=== PATIENT | male | born 1945 | race Caucasian/White ===

== ENCOUNTER 2016-09-27 03:44 | Emergency (ER) | payer OTHER ==
[2016-09-27] MEDS ORDERED: Sodium Chloride 0.9% 1,000 ML PRIMARY IV ONE (04:24)
[2016-09-27] MEDS ORDERED: NORMAL SALINE 10 ML SYRINGE FLUSH IVP PRN (04:24)
[2016-09-27] MEDS ORDERED: ONDANSETRON 4 MG/2 ML VIAL IVP ONE (04:24)
[2016-09-27 05:13] LABS: ABG BASE EXCESS -10 MMOL/L (-2-2); ABG OXYGEN SATURATION 94 % (90-100); ABG PCO2 23 MMHG (34-38); ABG PO2 69 MMHG (65-75); ALLEN TEST Y; COLLECTION SITE R Rad X2
[2016-09-27 05:25] LABS: BLOOD UREA NITROGEN 25 mg/dL (7-22); BUN/CREATININE RATIO 22.72 (6-20); CALCIUM 9.3 mg/dL (8.7-10.7); EST GLOMERULAR FILTRATION > 60 (>60 ml/min/1.73m(2)); SERUM ALBUMIN 3.7 g/dL (3.5-4.8)
[2016-09-27 05:32] LABS: BASOPHILS # (AUTO) 0.01 10*3/UL; BASOPHILS % (AUTO) 0.1 % (0-1); EOSINOPHILS # (AUTO) 0.04 10*3/UL; EOSINOPHILS % (AUTO) 0.5 % (0-8); HEMATOCRIT 37.5 % (42.0-52.0); HEMOGLOBIN 13.1 g/dL (14.0-18.0); LYMPHOCYTES # (AUTO) 0.44 10*3/uL; MEAN CORPUSCULAR HEMOGLOBIN 30.3 PG (27-31); MEAN CORPUSCULAR HGB CONC 34.9 g/dL (33-37); MEAN CORPUSCULAR VOLUME 86.6 FL (80-90); MEAN PLATELET VOLUME 10.1 FL (7.4-12.2); MONOCYTES # (AUTO) 0.43 10*3/UL (0.3-0.8); MONOCYTES % (AUTO) 5 % (5-15); NEUTROPHILS # (AUTO) 7.62 10*3/UL; NEUTROPHILS % (AUTO) 89.1 % (50-80); PLATELET MORPHOLOGY COMMENT NORMAL MORPHOLOGY (NORM); RBC MORPHOLOGY COMMENT NORMAL MORPHOLOGY (NORM); RED BLOOD COUNT 4.33 10^6/uL (4.70-6.10); WBC MORPHOLOGY COMMENT NORMAL MORPHOLOGY (NORM)
[2016-09-27 05:48] LABS: CLARITY,URINE CLOUDY (CLEAR); COLOR,URINE YELLOW; URINE SAMPLE TYPE CLEAN CATCH URINE
[2016-09-27 05:49] LABS: BILIRUBIN,URINE NEGATIVE (NEG); GLUCOSE, URINE (UA) 500 mg/dL (NEG); NITRATE,URINE NEGATIVE (NEG); OCCULT BLOOD,URINE SMALL (NEG); PROTEIN,URINE NEGATIVE (NEG)
[2016-09-27 05:50] LABS: UROBILINOGEN,URINE 0.2 EU/dL (0.2)
[2016-09-27 05:51] LABS: BACTERIA,URINE RARE; SQUAMOUS EPITHELIAL CELL,UR RARE; URINE CRYSTALS MODERATE
--- NOTE | 2016-09-27 06:19 | PDOC ---
General Adult HPI - General Chief Complaint: General Medical Stated Complaint: "I THINK I'M GOING SEPTIC"/ [facility] Date Seen by Provider: 09/27/16 Time Seen by Provider: 04:10 Source: POSITIVE: Patient, Spouse Exam Limitations: POSITIVE: No limitations Nurse's Notes Reviewed & Considered: Yes - History of Present Illness Initial Comment: The patient is a 70-year-old male. Patient has a urostomy secondary to bladder cancer. He states he awoke around 0030 this morning with "shivering and I had the sweats". Patient is concerned because he states he has had sepsis in the past, apparently urosepsis. He states that his urologist has advised him to take a Levaquin tablet whenever he develops his symptoms and to seek medical advice. Patient gets his medical care at the [facility] in [place]. He states he has a history of bladder and prostate cancer. He has had no known fevers. He took a Levaquin tablet, as he was reportedly instructed to do by his primary physician and/or urologist. Patient states he has had a urostomy for the past 3 years. He states he has felt somewhat nauseated. No head chest or abdominal pain. No rashes or skin changes. No neurologic symptoms. 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) Severity: Moderate Quality: REPORTS: Other (Patient denies any pain anywhere) Context: REPORTS: Sleep Modifying Factors: improves with: Nothing Similar Symptoms Previously: Yes (as above) Recent Care Received: REPORTS: Denies Any Prior Injuries Related to Current Complaint?: No - Patient Home Medications Home Medications: Home Medications Aspirin 81 mg PO DAILY 09/27/16 Budesonide/Formoterol Fumarate [Symbicort 80-4.5 Mcg Inhaler] 2 puff INH DAILY 09/27/16 Insulin Aspart [Novolog] 1.6 unit SUBCUT AC PRN 09/27/16 Omeprazole 40 mg PO DAILY 09/27/16 Simvastatin 40 mg PO DAILY 09/27/16 Valsartan 40 mg PO DAILY 09/27/16 - Patient Allergies Allergies/Adverse Reactions: Allergies Allergy/AdvReac Type Severity Reaction Status Date / Time No Known Allergies Allergy Verified 09/27/16 04:02 Past Medical History - heen HEENT History: Denies History Cardiovascular History: Hypertension, Hyperlipidemia Respiratory History: COPD Gastrointestinal History: Denies History Genitourinary History: Other (please comment) (Bladder and prostate cancer; urostomy) Endocrine History: Type 2 Diabetes (insulin) Musculoskeletal History: Other (please comment) (Neuropathy due to diabetes) Prosthesis or Implant: No Neurological History: Denies History Blood Disorders: Denies History Psychiatric History: Denies History Male Reproductive History: Denies History Cancer History: Other (please comment) (Bladder and prostate) In Past Year Been Physically Harmed or Verbally Threatened: No History of MDRO: No History of Other Communicable Diseases: No History of Exposure to Communicable Disease: No Tobacco Use: Former Smoker Do you dip or chew tobacco: No Alcohol Use: Rarely Substance Use Type: None Previous Hospitalizations: Yes (urostomy) Previous Surgical History: Yes Significant Family History: No pertinent family hx Past Medical History Reviewed: Reviewed - No Changes ROS - Limitations ROS Limitations: No Limitations Constitution: REPORTS: Chills Cardiovascular: REPORTS: Denies Cardiac Symptoms Respiratory: REPORTS: Denies Resp Symptoms Neurological: REPORTS: Denies Neuro Symptoms Gastrointestinal: REPORTS: Denies GI Symptoms Endocrine: REPORTS: Denies Symptoms Musculoskeletal: REPORTS: Denies MS Symptoms Genitourinary: REPORTS: Denies Symptoms, Other (Patient has a urostomy) Eyes: REPORTS: Denies Symptoms ENT: REPORTS: Denies Symptoms Skin: REPORTS: Denies Skin Symptoms Lympathic: REPORTS: Denies Lympathic Symptoms Immunologic: POSITIVE: Denies Symptoms Psychiatric: POSITIVE: Denies Psych Symptoms General Adult Exam - General Appearance General Appearance: POSITIVE: Alert, Cooperative, No Acute Distress, No Evidence of Trauma - HEENT HEENT: POSITIVE: Head Inspection Nml, Eyes Inspection Nml, Ears Inspection Nml, Nose Inspection Nml, Oral/Dental Inspect. Nml, Pharynx Inspect. Nml, PERRL, EOMI - Pupils Pupil Size: 3 mm: Bilateral (PERRLA) - Neck Neck: POSITIVE: Normal Inspection, Thyroid Normal - Respiratory Respiratory: POSITIVE: No Respiratory Distress, Breath Sounds Normal, Chest Non- Tender - Cardiovascular Cardiovascular: POSITIVE: Regular Rate & Rhythm, No Murmur, No Gallop, PMI Normal Peripheral Pulses: Radial (R): 2+, Radial (L): 2+ - Abdomen Abdomen: Soft: (All Quadrants), Normal Bowel Sounds: (All Quadrants), Denies Tenderness: (All Quadrants), No Splenomegaly: (All Quadrants), No Hepatomegaly: (All Quadrants), No Guarding: (All Quadrants), No Rebound: (All Quadrants), No Palpable Pulse: (All Quadrants), No Palpabale Mass: (All Quadrants), No Distention: (All Quadrants), No Rigidity: (All Quadrants) Additional Abdominal Details: Abdominal examination shows bowel sounds to be active. Abdomen is nontender and without masses, organomegaly or rebound. Functioning urostomy right lower abdomen - Back Back: POSITIVE: Normal Inspection. NEGATIVE: CVA Tenderness - Skin Skin: POSITIVE: Normal Color, Warm, Dry, No Rash - Extremities Extremity: Non-Tender: (All Extremities), Normal ROM: (All Extremities), Normal Inspection: (All Extremities) - Neurological / Psychological Neurological: POSITIVE: Oriented X3, special events planner Normal As Tested, Motor Normal, Sensation Normal, 5, 6 General Adult Progress - Results Reviewed by me Lab Results Reviewed: Yes Lab Results:: Laboratory Results 09/27/16 09/27/16 09/27/16 Range/Units 04:24 04:54 05:02 WBC 8.56 (4.8-10.8) 10^3/uL RBC 4.33 L (4.70-6.10) 10^6/uL Hgb 13.1 L (14.0-18.0) g/dL Hct 37.5 L (42.0-52.0) % MCV 86.6 (80-90) FL MCH 30.3 (27-31) PG MCHC 34.9 (33-37) g/dL RDW Std Deviation 41 (39-50) fL RDW Coeff of Arya 13.1 (11.5-14.5) % Plt Count 201 (140-350) 10*3/uL MPV 10.1 (7.4-12.2) FL Immature Gran % (Auto) 0.2 (0-5) % Neut % (Auto) 89.1 H (50-80) % Lymph % (Auto) 5.1 L (10-50) % [place]affee % (Auto) 5 (5-15) % Eos % (Auto) 0.5 (0-8) % Baso % (Auto) 0.1 (0-1) % Immature Gran # (Auto) 0.02 10*3/UL Neut # (Auto) 7.62 10*3/UL Lymph # (Auto) 0.44 10*3/uL [place] # (Auto) 0.43 (0.3-0.8) 10*3/UL Eos # (Auto) 0.04 10*3/UL Baso # (Auto) 0.01 10*3/UL WBC Morphology Comment Normal morphology (NORM) Plt Morphology Comment Normal morphology (NORM) RBC Morph Comment Normal morphology (NORM) PT 10.2 (9.7-11.4) secs INR 0.96 (0.00-5.90) N/A ABG pH 7.40 (7.35-7.45) ABG pCO2 23 L (34-38) MMHG ABG pO2 69 (65-75) MMHG ABG HCO3 14 L (22-26) ABG Total CO2 15 L (23-27) MMOL/L ABG O2 Saturation 94 (90-100) % ABG Base Excess -10 L (-2-2) MMOL/L Darrius Test Y FiO2 Ra Sodium 131 L (135-145) meq/L Potassium 5.0 (3.8-5.2) meq/L Chloride 104 (98-112) meq/L Carbon Dioxide 17 L (23-33) meq/L Anion Gap 10 (5-20) BUN 25 H (7-22) mg/dL Creatinine 1.1 (0.70-1.50) mg/dL Estimated GFR > 60 (>60 ml/min/1.73m(2)) BUN/Creatinine Ratio 22.72 H (6-20) Glucose 360 H (78-110) mg/dL Calculated Osmolality 290.0 (267-292) mOsm/kg Lactic Acid 1.7 (0.70-2.10) MMOL/L Calcium 9.3 (8.7-10.7) mg/dL Total Bilirubin 0.9 (0.3-1.2) mg/dL AST 21 (21-57) IU/L ALT 21 (21-72) IU/L Alkaline Phosphatase 63 (38-126) IU/L C-Reactive Protein 1.0 H (0.0-0.9) mg/dL Total Protein 6.3 (6.1-8.0) g/dL Albumin 3.7 (3.5-4.8) g/dL Globulin 2.5 (2.50-4.10) g/dL Albumin/Globulin Ratio 1.40 (1.3-2.0) mg/g Ur Collection Type Clean catch urine Urine Color Yellow Urine Clarity Cloudy (CLEAR) Urine pH 6.0 (5.0-8.5) Ur Specific Morgan 1.005 (1.005-1.030) Urine Protein Negative (NEG) mg/dl Urine Glucose (UA) 500 (NEG) mg/dL Urine Ketones Negative (NEG) Urine Occult Blood Small H (NEG) Urine Nitrate Negative (NEG) Urine Bilirubin Negative (NEG) Urine Urobilinogen 0.2 (0.2) EU/dL Ur Leukocyte Esterase Negative (NEG) Urine RBC 1-3 (NONE) /hpf Urine WBC 4-6 (NONE) Ur Squamous Epith Cells Rare (NONE) Ur Renal Epithelial Cell None (NONE) Urine Crystals Moderate Urine Bacteria Rare (NONE) Urine Casts None (NONE) Urine Mucus Rare (NONE) Urine Trichomonas None (NONE) Urine Yeast None (NONE) Ur Culture Indicated? Culture set - Patient's Progress Pain Medication Addressed: POSITIVE: Not Applicable School/Work Release Addressed: POSITIVE: Not Applicable Re-Examine Time: 06:10 Re-Examine Comment: Patient remained comfortable and asymptomatic throughout his stay in the emergency room. No fevers. Laboratory results reviewed with patient. Patient has an appointment for follow-up with his physician at the [facility] in [place] October 03. Status: POSITIVE: Unchanged, Re-Examined Antibiotics Given: Yes (recommended he continue Levaquin as directed by his urologist) - Consult Counseled: POSITIVE: Patient, Family, RE: Lab Results, RE: DX, RE: Need for F/U Patient Care Time - Estimated PCT Patient Care Time (In Minutes): 50 Vital Signs - Recent Vital Signs Vital Signs: Blood pressure 155/85, heart rate 90, respiratory rate 22, temperature 97.4F, oxygen saturation on room air 96%. Temperature prior to discharge 97.6F - VS Reviewed Vital Signs Reviewed: Yes Discharge Clinical Impression: Chills (without fever) Discharge Disposition: Discharged to Home Condition: Stable Patient Instructions Given at Discharge: Urinary Tract Infection in Men (ED) Additional Instructions: I'm not completely sure why you had your episode of chills this evening. I see no evidence of sepsis, specifically urosepsis. I recommend that you follow your urologist instructions and take Levaquin as he has directed. Increase fluids. Follow-up with your urologist in October as is arranged. Return here anytime if condition worsens in any way whatsoever. Follow Up With: NONE,NONE [Primary Care Provider] - (Instructions as above. Follow-up with your urologist. Return here anytime if condition worsens in any way whatsoever. )
[2016-09-27 06:45] VITALS: RESP 22; TEMP 97.4
== END 2016-09-27 06:27 | disposition home or self-care (01) ==
LOC: ER 03:44
DX: R68.83 Chills (without fever) (principal); E11.40 Type 2 diabetes mellitus with diabetic neuropathy, unspecified; E78.5 Hyperlipidemia, unspecified; Z85.46 Personal history of malignant neoplasm of prostate; I10 Essential (primary) hypertension; Z85.51 Personal history of malignant neoplasm of bladder
CPT/HCPCS: 36600; 80053; 81001; 81003; 82803; 83605; 85025; 85610; 86140; 87040; 96361; 96374; 99282 ×2; J2405; J7030